=== PATIENT | female | born 2000 ===

== ENCOUNTER 2019-03-31 18:55 | Emergency (ER) | payer MEDICAID ==
[2019-03-31 19:52] VITALS: O2SAT 100
--- NOTE | 2019-03-31 20:32 | ED PDOC ---
HPI: Female Pain Time Seen by Provider: 03/31/19 20:24 Chief Complaint (Nursing): Female Genitourinary Chief Complaint (Provider): 14 weeks : dysuria History Per: Patient History/Exam Limitations: no limitations Onset/Duration Of Symptoms: Days (1) Current Symptoms Are (Timing): Still Present Quality Of Discomfort: Burning Associated Symptoms: Urinary Symptoms Additional Complaint(s): 19 y/o female, approximately 14 weeks gestation, presents for evaluation of dysuria since this morning. Patient also reports increased urine frequency, and blood on tissue after wiping after urinating later in the day. Denies fever, nausea/vomiting, chest pain, shortness of breath, palpitations, abdominal pain, vaginal bleeding/discharge. [facility] Filler: [facility] Past Medical History Reviewed: Historical Data, Nursing Documentation, Vital Signs Vital Signs: Last Vital Signs Temp 98.7 F 03/31/19 19:49 Pulse 82 03/31/19 19:49 Resp 16 03/31/19 19:49 BP 108/72 03/31/19 19:49 Pulse Ox 100 03/31/19 19:49 Primary Care Provider: FAMILY PROVIDER,NO - Medical History PMH: No Chronic Diseases - Surgical History Surgical History: No Surg Hx - Family History Family History: States: No Known Family Hx - Living Arrangements Living Arrangements: With Family - Home Medications Home Medications: Ambulatory Orders Medication Instructions Recorded Miconazole Nitrate [Monistat 3] 1 each VG HS 3 Days kit 03/31/19 Nitrofurantoin Macrocrystals 100 mg PO BID #13 cap 03/31/19 [Macrobid] - Allergies Allergies/Adverse Reactions: Allergies Allergy/AdvReac Type Severity Reaction Status Date / Time No Known Allergies Allergy Verified 03/31/19 19:49 Review of Systems ROS Statement: Except As Marked, All Systems Reviewed And Found Negative Genitourinary Female: Positive for: Dysuria, Hematuria Physical Exam - Reviewed Nursing Documentation Reviewed: Yes Vital Signs Reviewed: Yes - Physical Exam Appears: Positive for: Well, Non-toxic, No Acute Distress Head Exam: Positive for: ATRAUMATIC, NORMOCEPHALIC Skin: Positive for: Normal Color Eye Exam: Positive for: Normal appearance ENT: Positive for: Normal ENT Inspection Cardiovascular/Chest: Positive for: Regular Rate, Rhythm Respiratory: Positive for: Normal Breath Sounds Gastrointestinal/Abdominal: Positive for: Bowel Sounds, Soft, Tenderness (suprapubic discomfort) Pelvic Exam: Positive for: External Exam Normal, Bimanual Exam Normal, No Cerv. 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
[2019-03-31 20:54] LABS: SQUAMOUS EPITHIAL 17 /hpf (0-5); URINE AMORPHOUS SEDIMENT RARE /ul (<OCC); URINE BACTERIA RARE (<OCC); URINE BILIRUBIN NEGATIVE (NEGATIVE); URINE BLOOD LARGE (NEGATIVE); URINE CLARITY CLOUDY (Clear); URINE COLOR YELLOW (YELLOW); URINE GLUCOSE (UA) NEG (NEGATIVE); URINE LEUKOCYTE ESTERASE MOD Leu/uL (Negative); URINE PROTEIN 100 mg/dL (NEGATIVE); URINE UROBILINOGEN 0.2-1.0 mg/dL (0.2-1.0)
[2019-03-31 22:08] VITALS: BP 116/75; PULSE 81; RESP 17; TEMP 98.5
== END 2019-03-31 21:25 | disposition home or self-care (01) ==
LOC: H.ER 18:55
DX: O23.42 Unspecified infection of urinary tract in pregnancy, second trimester (principal); B37.3 Candidiasis of vulva and vagina; O98.812 Other maternal infectious and parasitic diseases complicating pregnancy, second trimester; Z3A.14 14 weeks gestation of pregnancy